=== PATIENT | male | born 1995 | race Hispanic/Latino ===

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

== ENCOUNTER 2021-06-01 21:06 | Emergency (ER) | payer SELFPAY ==
[~2021-06-01] VITALS: Ht 167.6 cm; Wt 88.0 kg
[~2021-06-01 21:06] MED LIST changes: +AMOXICILLIN500 MG PO; +CODEINE/GUAIFEN1 SOL PO; +MOTRIN800 MG PO; +PEPCID AC20 MG PO
[2021-06-01] MEDS ORDERED: KEFLEX500 MG PO (23:17)
[2021-06-01 23:32] VITALS: BP 122/64
== END 2021-06-01 23:43 | disposition home or self-care (01) | DRG 914 ==
LOC: ED 21:06
DX: S61.341A Puncture wound with foreign body of left index finger with damage to nail, initial encounter (principal); F17.200 Nicotine dependence, unspecified, uncomplicated; W45.0XXA Nail entering through skin, initial encounter; Y93.H3 Activity, building and construction

== ENCOUNTER 2021-09-08 06:40 | Emergency (ER) | payer OTHER ==
[~2021-09-08] VITALS: Ht 167.6 cm; Wt 86.0 kg
[~2021-09-08 06:40] MED LIST changes: +KEFLEX500 MG PO
[2021-09-08 07:24] LABS: HEMATOCRIT 44.5 % (39.0-50.0); HEMOGLOBIN 15.5 g/dl (14.0-18.0); MEAN CORPUSCULAR HGB CONC 34.8 g/dL CAL (32.0-36.0); NEUT# 5.68 thou/uL (1.82-7.42); RED CELL DISTRI WIDTH 11.9 % (11.5-15.5)
[2021-09-08 07:45] LABS: ALBUMIN 3.8 g/dL (3.2-5.0); ALKALINE PHOSPHATASE 71 u/l (38-126); AMYLASE 82 u/l (30-110); ANION GAP 9 (6-22 (CALC)); BILIRUBIN, TOTAL 0.6 mg/dL (0.0-1.4); BUN 17 mg/dL (9-20); BUN/CREATININE RATIO 16 (12-20 (CALC)); CARBON DIOXIDE 29 mmol/l (22-30); CHLORIDE 104 mmol/l (95-108); CREATININE 1.1 mg/dL (0.7-1.3); ETHYL ALCOHOL 0 mg/dl (0-30); GFR > 60 ML/MIN (>=60 (CALC)); GFR FOR AFR.AMER. > 60 ML/MIN (>=60 (CALC)); LIPASE 242 u/l (23-300); POTASSIUM 3.8 mmol/l (3.5-5.1); SGOT/AST 38 u/l (17-59); SODIUM 139 mmol/l (137-146); TOTAL PROTEIN 6.6 g/dL (6.3-8.2)
[2021-09-08 07:56] LABS: ACT PARTIAL THROMBO TIME 21.7 SECONDS (20.0-32.5); PROTHROMBIN TIME 10.2 SECONDS (9.0-12.5)
[2021-09-08 10:23] LABS: URINE BILIRUBIN - DIPSTICK NEGATIVE (NEGATIVE); URINE BLOOD DIPSTICK NEGATIVE (NEGATIVE); URINE COLOR YELLOW; URINE GLUCOSE - DIPSTICK NEGATIVE (NEGATIVE); URINE KETONE NEGATIVE (NEGATIVE); URINE LEUK ESTERASE NEGATIVE (NEGATIVE); URINE PROTEIN - DIPSTICK NEGATIVE (NEG-TRACE); URINE UROBILINOGEN - DIPSTICK 0.2 E.U./dL (0.2)
[2021-09-08 10:24] LABS: URINE NITRITE - DIPSTICK NEGATIVE (Negative)
[2021-09-08 11:00] VITALS: BP 97/47
[2021-09-08 11:30] VITALS: BP 99/63
== END 2021-09-08 12:30 | DRG 552 ==
LOC: ED 06:40
DX: S22.080A Wedge compression fracture of T11-T12 vertebra, initial encounter for closed fracture (principal); F17.200 Nicotine dependence, unspecified, uncomplicated; V43.62XA Car passenger injured in collision with other type car in traffic accident, initial encounter
CPT/HCPCS: Q9967

== ENCOUNTER 2022-01-08 17:28 | Emergency (ER) | payer SELFPAY ==
[~2022-01-08] VITALS: Ht 167.6 cm; Wt 86.3 kg
[2022-01-08 17:44] VITALS: BP 132/84
[2022-01-08 18:23] LABS: HEMATOCRIT 46.6 % (39.0-50.0); HEMOGLOBIN 16.2 g/dl (14.0-18.0); IMMATURE GRANULOCYTES 0.1 % (0.0-5.0); MEAN CORPUSCULAR HGB 28.5 pG CALC (26.0-32.0); MEAN CORPUSCULAR HGB CONC 34.8 g/dL CAL (32.0-36.0); NEUT# 4.94 thou/uL (1.82-7.42); RED BLOOD COUNT 5.68 mill/uL (4.70-6.10); RED CELL DISTRI WIDTH 13.9 % (11.5-15.5)
[2022-01-08 18:40] LABS: ALBUMIN 4.3 g/dL (3.2-5.0); ALKALINE PHOSPHATASE 101 u/l (38-126); ANION GAP 13 (6-22 (CALC)); BILIRUBIN, TOTAL 0.7 mg/dL (0.0-1.4); BUN 11 mg/dL (9-20); BUN/CREATININE RATIO 16 (12-20 (CALC)); CARBON DIOXIDE 25 mmol/l (22-30); CHLORIDE 102 mmol/l (95-108); CREATININE 0.7 mg/dL (0.7-1.3); GFR FOR AFR.AMER. > 60 ML/MIN (>=60 (CALC)); GFR OTHER RACES > 60 ML/MIN (>=60 (CALC)); POTASSIUM 3.8 mmol/l (3.5-5.1); SGOT/AST 46 u/l (17-59); SODIUM 136 mmol/l (137-146); TOTAL PROTEIN 7.8 g/dL (6.3-8.2)
[2022-01-08] MEDS ORDERED: VOLTAREN75 MG PO (20:57)
[2022-01-08] MEDS ORDERED: TRAMADOL HCL50 MG PO (20:57)
[2022-01-08] MEDS ORDERED: BACTRIM DS1 TAB PO (20:57)
[2022-01-08 21:29] VITALS: BP 132/84
== END 2022-01-08 21:51 | disposition home or self-care (01) | DRG 605 ==
LOC: ED 17:28
PROVIDERS: Emergency Medicine
DX: S40.812A Abrasion of left upper arm, initial encounter (principal); S40.811A Abrasion of right upper arm, initial encounter; S20.412A Abrasion of left back wall of thorax, initial encounter; S20.411A Abrasion of right back wall of thorax, initial encounter; S40.022A Contusion of left upper arm, initial encounter; S40.021A Contusion of right upper arm, initial encounter; S20.223A Contusion of bilateral back wall of thorax, initial encounter; S90.32XA Contusion of left foot, initial encounter; F17.210 Nicotine dependence, cigarettes, uncomplicated; V28.4XXA Motorcycle driver injured in noncollision transport accident in traffic accident, initial encounter
CPT/HCPCS: Q9967

== ENCOUNTER 2022-12-29 05:46 | Emergency (ER) | payer SELFPAY ==
[~2022-12-29] VITALS: Ht 167.6 cm; Wt 88.9 kg
[~2022-12-29 05:46] MED LIST changes: +BACTRIM DS1 TAB PO; +TRAMADOL HCL50 MG PO; +VOLTAREN75 MG PO
[2022-12-29] MEDS ORDERED: AMOXICILLIN500 MG PO (06:11)
[2022-12-29] MEDS ORDERED: VOLTAREN - GENE75 MG PO (06:11)
[2022-12-29] MEDS ORDERED: TRAMADOL HCL50 MG PO (06:11)
[2022-12-29 06:42] VITALS: BP 136/96
== END 2022-12-29 06:51 | disposition home or self-care (01) | DRG 159 ==
LOC: ED 05:46
DX: K04.7 Periapical abscess without sinus (principal); K02.9 Dental caries, unspecified; F17.200 Nicotine dependence, unspecified, uncomplicated

== ENCOUNTER 2024-02-19 22:55 | Emergency (ER) | payer SELFPAY ==
[~2024-02-19] VITALS: Ht 167.6 cm; Wt 70.0 kg
[~2024-02-19 22:55] MED LIST changes: +AMOX/K CLAV875 M1 PO; +IBUPROFEN600 MG PO; +VOLTAREN - GENE75 MG PO
[2024-02-19 23:10] VITALS: BP 138/99
[2024-02-19] MEDS ORDERED: AMOXICILLIN TRIHYDRATE 500 MG/CAP PO ONE (23:10)
[2024-02-19] MEDS ORDERED: ACETAMINOPHEN 500 MG TAB PO ONE (23:10)
[2024-02-19] MEDS ORDERED: DICLOFENAC SODIUM 75 MG/TAB PO ONE (23:10)
[2024-02-19] MEDS ORDERED: NAPROXEN375 MG PO (23:15)
[2024-02-19] MEDS ORDERED: AMOXICILLIN500 M2 PO (23:15)
[2024-02-19 23:21] VITALS: BP 138/99
== END 2024-02-19 23:36 | disposition home or self-care (01) | DRG 159 ==
LOC: ED 22:55
DX: K04.7 Periapical abscess without sinus (principal); K02.9 Dental caries, unspecified; Z72.0 Tobacco use; Z91.199 Patient's noncompliance with other medical treatment and regimen due to unspecified reason